=== PATIENT | male | born 1945 | race Hispanic/Latino ===

== ENCOUNTER 2021-06-24 06:12 | Day surgery (SDC) | payer OTHER ==
[2021-06-22 12:18] LABS: BASOPHILS % (AUTO) 0.8 % (0.0-5.0); EOSINOPHILS % (AUTO) 1.6 % (0.0-8.0); LYMPHOCYTES % (AUTO) 27.2 % (21.0-51.0); MEAN CORPUSCULAR HEMOGLOBIN 33.3 pg (27.0-33.0); MEAN CORPUSCULAR HGB CONC 31.6 g/dL (32.0-36.0); MEAN CORPUSCULAR VOLUME 105.6 fL (79-99); MONOCYTES % (AUTO) 9.4 % (3.0-13.0); NEUTROPHILS % (AUTO) 60.7 % (40.0-77.0); PLATELET COUNT (AUTO) 235 K/uL (130-400); RED BLOOD CELL COUNT(AUTO) 3.03 MIL/uL (4.50-6.20); RED CELL DISTRIBUTION WIDTH 15.3 % (11.0-15.5); WHITE BLOOD COUNT (AUTO) 6.3 K/uL (4.8-10.8)
[2021-06-22 12:27] LABS: CREATININE 3.7 mg/dL (0.5-1.5); POTASSIUM 4.9 mmol/L (3.5-5.1)
[2021-06-22 12:29] LABS: INR 1.26 (0.85-1.15); PROTHROMBIN TIME 13.4 SEC (9.6-11.6)
[2021-06-22 12:30] LABS: PARTIAL THROMBOPLASTIN TIME 26.5 SEC (26.3-35.5)
[2021-06-24] VITALS (11 sets, daily range): BP systolic 82–190; BP diastolic 6–93
[~2021-06-24] VITALS: Ht 166.4 cm; Wt 75.9 kg
[~2021-06-24 06:12] MED LIST: 0.9%NACL 1000ML 1,000 ML IV ONE; ASPI-1443 PO; ATOR40TA71 PO; CARV3.12 PO; CLOP75TA32 PO; DIGO125T71 PO; FINA5TAB41 PO; INSU100V12 SQ; LATA7.5D OP; LEVO175C2 PO; PATI8.4P PO; TAMS-1 PO; URSO300C4 PO; vitamin d PO
[2021-06-24 06:38] LABS: CREATININE 3.3 mg/dL (0.5-1.5); POTASSIUM 4.9 mmol/L (3.5-5.1)
[2021-06-24] MEDS ORDERED: GLIP5TAB11 PO (06:47)
[2021-06-24] MEDS ORDERED: SACU1TAB PO (06:48)
[2021-06-24] MEDS ORDERED: CEFAZOLIN SODIUM 1 GM VIAL IVP ONE (08:00)
[2021-06-24] MEDS ORDERED: CEFAZOLIN SODIUM 1 GM VIAL ONE (09:46)
[2021-06-24] MEDS ORDERED: BUPIVACAINE/PF 0.25% 30ML VIAL IJ ONE (09:46)
[2021-06-24] MEDS ORDERED: MIDAZOLAM HCL 1 MG/ML 2ML VIAL ONE ×2 (09:47→11:12)
[2021-06-24] MEDS ORDERED: MEPERIDINE-PF 25 MG/ML SYG ONE ×3 (09:47→11:13)
[2021-06-24] MEDS ORDERED: LIDOCAINE HCL 1% MDV 50ML VIAL ONE (09:47)
[2021-06-24] MEDS ORDERED: THROMBIN-JMI 5000 UNIT/VIAL TP ONE ×2 (11:22→11:34)
[2021-06-24] MEDS ORDERED: ACETAMINOPHEN WITH CODEINE 1 TAB TAB PO PRN (12:00)
[2021-06-24] MEDS ORDERED: TRAM50TA4 PO (12:04)
== END 2021-06-24 17:30 | disposition home or self-care (01) ==
LOC: DAH 06:12
PROVIDERS: ATTEND Internal Medicine Cardiovascular Disease
DX: Z45.02 Encounter for adjustment and management of automatic implantable cardiac defibrillator (principal); I25.5 Ischemic cardiomyopathy; I50.42 Chronic combined systolic (congestive) and diastolic (congestive) heart failure; E11.9 Type 2 diabetes mellitus without complications; I95.2 Hypotension due to drugs; I25.10 Atherosclerotic heart disease of native coronary artery without angina pectoris; Z79.01 Long term (current) use of anticoagulants; Z79.899 Other long term (current) drug therapy; Z95.5 Presence of coronary angioplasty implant and graft; I25.2 Old myocardial infarction; Z79.82 Long term (current) use of aspirin; Z98.890 Other specified postprocedural states; Z82.49 Family history of ischemic heart disease and other diseases of the circulatory system; Z83.3 Family history of diabetes mellitus; Z82.3 Family history of stroke
CPT/HCPCS: 33264; 36415 ×3; 80048 ×2; 80162; 82948 ×2; 85025; 85610; 85730; 93005; A4215; A4216; A4221; A4222; A4223 ×3; A4606; A4663; C1882; J0690; J2175 ×3; J2250 ×2; J3490 ×4; J7030; 99156; 99157